=== PATIENT | male | born 1965 | race Caucasian/White ===

== ENCOUNTER → 2017-03-21 | Outpatient (CLI) | payer MEDICARE, OTHER ==
--- NOTE | 2017-03-21 23:17 | MR ---
EXAMINATION TYPE: MR cervical spine wo/w con DATE OF EXAM: 03/21/2017 8:36 PM COMPARISON: NONE HISTORY: Neck pain, headaches, BUE weakness, surgery 2 years ago TECHNIQUE: Multiplanar, multisequence images of the cervical spine were acquired utilizing 16 mL intravenous Mul tiHance gadolinium contrast. Diffusion weighted imaging was performed. There is metal artifact from anterior fusion surgery at C6-7. Vertebra have normal alignment. Disc sp aces are fairly normal. Cervical spinal cord has normal signal pattern. There is no evidence of edema . The contrast images show no pathologic enhancement. The brainstem is intact. There is no paraspinal mass. Posterior elements appear intact. There is very small posterior disc bulging at C4-5 C5-6. The re is no spinal stenosis. IMPRESSION: Previous surgery. Small posterior disc bulging as above. No spinal stenosis.
== END | disposition home or self-care (01) ==
LOC: RADMRIMAIN 18:47
PROVIDERS: ATTEND Physician Assistant
DX: M50.221 Other cervical disc displacement at C4-C5 level (principal)
CPT/HCPCS: 72156; A9577